=== PATIENT | female | born 1965 | race Two or more races ===

== ENCOUNTER 2017-07-15 13:49 | Outpatient (CLI) | payer OTHER | END 2017-07-15 14:46 | disposition home or self-care (01) | LOC: RAD 13:49 | DX: J01.91 Acute recurrent sinusitis, unspecified (principal) ==

== ENCOUNTER 2017-07-20 10:05 | Outpatient (CLI) | payer OTHER ==
[~2017-07-20] VITALS: Ht 167.6 cm; Wt 62.1 kg
[2017-07-20] MEDS ORDERED: AMOX-CLAV 875-1 EACH PO (11:26)
[2017-07-20] MEDS ORDERED: FLONASE16 GM NASAL (11:27)
== END 2017-07-20 10:20 | disposition home or self-care (01) ==
LOC: OFIC 805 10:05
DX: J32.0 Chronic maxillary sinusitis (principal)

== ENCOUNTER 2017-08-01 14:05 | Outpatient (CLI) | payer OTHER ==
[~2017-08-01 14:05] MED LIST: AMOX-CLAV 875-1 EACH PO; FLONASE16 GM NASAL
== END 2017-08-01 14:13 | disposition home or self-care (01) ==
LOC: TOM 14:05
DX: J32.9 Chronic sinusitis, unspecified (principal)

== ENCOUNTER 2017-08-03 10:09 | Outpatient (CLI) | payer OTHER ==
[~2017-08-03] VITALS: Ht 152.4 cm; Wt 62.1 kg
== END 2017-08-03 10:20 | disposition home or self-care (01) ==
LOC: OFIC 805 10:09
DX: J31.0 Chronic rhinitis (principal); H61.23 Impacted cerumen, bilateral; J34.2 Deviated nasal septum; J34.3 Hypertrophy of nasal turbinates

== ENCOUNTER 2018-06-27 14:24 | Outpatient (CLI) | payer OTHER | END 2018-06-27 14:47 | disposition home or self-care (01) | LOC: RAD 14:24 | DX: M54.2 Cervicalgia (principal) ==

== ENCOUNTER 2018-11-29 14:12 | Outpatient (CLI) | payer OTHER | END 2018-11-29 14:27 | disposition home or self-care (01) | LOC: MAMO-SONO 14:12 | DX: Z12.31 Encounter for screening mammogram for malignant neoplasm of breast (principal); N61.0 Mastitis without abscess ==

== ENCOUNTER 2019-11-05 12:07 | Outpatient (CLI) | payer OTHER | END 2019-11-05 12:21 | disposition home or self-care (01) | LOC: SONOGRAMA 12:07 | PROVIDERS: ATTEND Pathology Anatomic Pathology & Clinical Pathology | DX: E04.1 Nontoxic single thyroid nodule (principal) ==

== ENCOUNTER 2019-12-27 12:27 | Outpatient (CLI) | payer OTHER | END 2019-12-27 12:31 | disposition home or self-care (01) | LOC: SONOGRAMA 12:27 | PROVIDERS: ATTEND Pathology Anatomic Pathology & Clinical Pathology | DX: E04.1 Nontoxic single thyroid nodule (principal) ==

== ENCOUNTER 2020-05-20 13:59 | Outpatient (CLI) | payer OTHER | END 2020-05-20 14:10 | disposition home or self-care (01) | LOC: MAMO-SONO 13:59 | PROVIDERS: ATTEND Obstetrics & Gynecology | DX: N60.11 Diffuse cystic mastopathy of right breast (principal); N60.12 Diffuse cystic mastopathy of left breast; Z12.31 Encounter for screening mammogram for malignant neoplasm of breast; N64.89 Other specified disorders of breast ==